=== PATIENT | female | born 1940 | race Caucasian/White ===

== ENCOUNTER 2017-06-25 04:51 | Inpatient (IN) | payer OTHER ==
[2017-06-25] VITALS (11 sets, daily range): BP systolic 127–192; BP diastolic 64–90; PULSE 67–81; RESP 12–18; TEMP 96.3–97.8; O2SAT 96–99
[~2017-06-25] VITALS: Ht 162.6 cm; Wt 77.8 kg
[~2017-06-25 04:51] MED LIST: ALEN35TA24 PO; COZA50TA PO; GLYB1TAB51 PO; LORTA5 PO; LOVA40TA PO; METF850T PO; OXYB5TAB PO
--- NOTE | 2017-06-25 05:28 | PD ---
HPI Chief Complaint: Abdominal Pain Time Seen by Provider: 05:22 Travel History International Travel<30 days: No Contact w/Intl Traveler<30days: No Traveled to known affect area: No History of Present Illness HPI 76-year-old female with 3 weeks of intermittent constipation. Patient with increasing pain this evening. No bowel movement over the past several days. Patient was seen by her primary care provider on Monday given direction to take laxative regimen help polyethylene glycol and Dulcolax without bowel movement. Patient has had previous hysterectomy but no other abdominal/pelvic surgeries. Patient has prescription for an x-ray of the abdomen and pelvis as well as an ultrasound of the gallbladder. Patient has had nausea without vomiting. No hematemesis no coffee-ground emesis no melena hematochezia. Patient has had poor oral intake. Patient's had no chest pain or shortness of breath. Patient does have history of hypertension and diabetes. Patient's current reported pain is 10 over 10 in intensity. Patient is unable to identify exacerbating or alleviating factors. PFSH Past Medical History Narrative Medical Hypertension dyslipidemia diabetes hysterectomy no tobacco use nursing notes reviewed Arthritis: Yes Cardiovascular Problems: Yes (HTN) High Cholesterol: Yes Diabetes: Yes Hypertension: Yes Immunizations Current: No Triglycerides - High: Yes Menopausal: No Past Surgical History Abdominal Surgery: Yes Hysterectomy: Yes Family History Family Hypercholesterolemia: Yes Social History Alcohol Use: No Tobacco Use: No Substance Use: No Allergies-Medications (Allergen,Severity, Reaction): Coded Allergies: No Known Allergies (Unverified Adverse Reaction, Unknown, 06/25/17) Reported Meds & Prescriptions Reported Meds & Active Scripts Active Reported Lantus Solostar Pen Inj (Insulin Glargine) 300 Unit/3 Ml Pen 1 Units SQ Lovastatin 40 Mg Tab 40 Mg PO DAILY Losartan-Hydrochlorothiazide 100-12.5 Mg Tab 1 Tab PO DAILY Metformin (Metformin HCl) 850 Mg Tab 850 Mg PO DAILY With a meal Review of Systems Except as stated in HPI: all other systems reviewed are Neg Physical Exam Narrative GENERAL: Well-developed elderly female in no acute distress no respiratory distress SKIN: Warm and dry. HEAD: Normocephalic. EYES: No scleral icterus. No injection or drainage. NECK: Supple, trachea midline. No JVD or lymphadenopathy. CARDIOVASCULAR: Regular rate and rhythm without murmurs, gallops, or rubs. RESPIRATORY: Breath sounds equal bilaterally. No accessory muscle use. GASTROINTESTINAL: Abdomen soft, diffusely tender without guarding or rebound, nondistended. Rectal exam: Normal sphincter tone no fissure noted no hemorrhoids no gross blood digital exam no stool in the rectal vault nontender exam glove with brown mucoid stool, heme-negative. MUSCULOSKELETAL: No cyanosis, or edema. BACK: Nontender without obvious deformity. No CVA tenderness. Data Data Last Documented VS Vital Signs Date Time Temp Pulse Resp B/P (MAP) Pulse Ox O2 Delivery O2 Flow Rate FiO2 06/25/17 07:15 16 06/25/17 07:10 72 127/71 (89) 98 Room Air 06/25/17 05:01 97.8 Orders Orders Complete Blood Count With Diff (06/25/17 05:22) Comprehensive Metabolic Panel (06/25/17 05:22) Lipase (06/25/17 05:22) Urinalysis - C+S If Indicated (06/25/17 05:22) Ct Abd/Pel W Iv Contrast(Rout) (06/25/17 05:22) Iv Access Insert/Monitor (06/25/17 05:22) Ecg Monitoring (06/25/17 05:22) Oximetry (06/25/17 05:22) Ondansetron Inj (Zofran Inj) (06/25/17 05:30) Sodium Chloride 0.9% Flush (Ns Flush) (06/25/17 05:30) Electrocardiogram (06/25/17 05:22) Chest, Single Ap (06/25/17 05:22) Troponin I (06/25/17 05:22) NPO (06/25/17 05:22) Hydromorphone Pf Inj (Dilaudid Pf Inj) (06/25/17 05:30) Sodium Chlor 0.9% 1000 Ml Inj (Ns 1000 M (06/25/17 05:30) Ckmb (Isoenzyme) Profile (06/25/17 05:45) CKMB (06/25/17 05:45) CKMB% (06/25/17 05:45) Iohexol 350 Inj (Omnipaque 350 Inj) (06/25/17 06:34) Labs Laboratory Tests Test 06/25/17 05:45 White Blood Count 9.3 TH/MM3 Red Blood Count 4.16 MIL/MM3 Hemoglobin 11.4 GM/DL Hematocrit 34.2 % Mean Corpuscular Volume 82.1 FL Mean Corpuscular Hemoglobin 27.4 PG Mean Corpuscular Hemoglobin Concent 33.3 % Red Cell Distribution Width 11.8 % Platelet Count 325 TH/MM3 Mean Platelet Volume 8.3 FL Neutrophils (%) (Auto) 62.4 % Lymphocytes (%) (Auto) 22.5 % Monocytes (%) (Auto) 11.2 % Eosinophils (%) (Auto) 2.9 % Basophils (%) (Auto) 1.0 % Neutrophils # (Auto) 5.8 TH/MM3 Lymphocytes # (Auto) 2.1 TH/MM3 Monocytes # (Auto) 1.0 TH/MM3 Eosinophils # (Auto) 0.3 TH/MM3 Basophils # (Auto) 0.1 TH/MM3 CBC Comment DIFF FINAL Differential Comment Blood Urea Nitrogen 12 MG/DL Creatinine 0.80 MG/DL Random Glucose 225 MG/DL Total Protein 7.7 GM/DL Albumin 3.2 GM/DL Calcium Level 8.7 MG/DL Alkaline Phosphatase 81 U/L Aspartate Amino Transf (AST/SGOT) 10 U/L Alanine Aminotransferase (ALT/SGPT) 22 U/L Total Bilirubin 0.3 MG/DL Sodium Level 126 MEQ/L Potassium Level 3.6 MEQ/L Chloride Level 88 MEQ/L Carbon Dioxide Level 30.8 MEQ/L Anion Gap 7 MEQ/L Estimat Glomerular Filtration Rate 70 ML/MIN Total Creatine Kinase 153 U/L Creatine Kinase MB 1.7 NG/ML Troponin I 0.06 NG/ML Lipase 234 U/L MDM Medical Decision Making Medical Screen Exam Complete: Yes Emergency Medical Condition: Yes Medical Record Reviewed: Yes Interpretation(s) EKG: normal sinus rhythm rate 80 QS septally age-indeterminate nonspecific T- wave inversion laterally; no acute ST elevation CBC & BMP Diagram 06/25/17 05:45 Total Protein 7.7, Albumin 3.2 L, Calcium Level 8.7, Alkaline Phosphatase 81, Aspartate Amino Transf (AST/SGOT) 10 L, Alanine Aminotransferase (ALT/SGPT) 22, Total Bilirubin 0.3 troponin I: 0.06, elevated Last Impressions Chest X-Ray 06/25/17 0522 Signed Impressions: Service Date/Time: Sunday, June 25, 2017 05:52 - CONCLUSION: 1. Cardiomegaly. Subsegmental atelectasis left base. Bernardo Frey MD Abdomen/Pelvis CT 06/25/17 0522 Signed Impressions: Service Date/Time: Sunday, June 25, 2017 06:31 - CONCLUSION: 1. No evidence of acute abdominal or pelvic process. No masses are identified. 2. Constipation as above 3. Left adrenal myelolipoma Bernardo Frey MD Differential Diagnosis Abdominal pain, gastritis, pancreatitis, peptic ulcer disease, choledocholithiasis, cholecystitis, colitis, mesenteric ischemia, bowel obstruction Narrative Course Patient kept nothing by mouth IV access obtained specimens collected and sent for resulting patient administered Zofran and Dilaudid along with maintenance IV fluids HemaPrompt Point of Care Internal Pos. & Neg. Controls: Passed Fecal Specimen Occult Blood: Negative Physician Communication Physician Communication all placed to [facility] service Diagnosis Primary Impression: Constipation Qualified Codes: K59.00 - Constipation, unspecified Additional Impressions: Elevated troponin I level Abdominal pain Qualified Codes: R10.84 - Generalized abdominal pain Admitting Information Admitting Physician Requests: Admit Michelle Leon MD Jun 25, 2017 05:28
[2017-06-25] MEDS ORDERED: ONDANSETRON HCL 4 MG/2 ML VIAL IVP ONE (05:30)
[2017-06-25] MEDS ORDERED: HYDROmorphone HCL PF 0.5 MG/0.5 ML SYRINGE IV PUSH ONE (05:30)
[2017-06-25] MEDS ORDERED: SODIUM CHLORIDE 0.9% FLUSH 10 ML FLUSH IV FLUSH PRN (05:30)
[2017-06-25] MEDS ORDERED: LANTINJ SQ (05:32)
[2017-06-25] MEDS ORDERED: LOSA100T3 PO (05:32)
[2017-06-25] MEDS ORDERED: METF850T PO (05:32)
[2017-06-25] MEDS ORDERED: LOVA40TA PO (05:32)
[2017-06-25] MEDS: SODIUM CHLOR 0.9% 1000 ML INJ 1,000 ML IV SCH ×2 (05:47→15:30)
[2017-06-25 05:54] LABS: AUTOMATED NEUTROPHIL # 5.8 TH/MM3 (1.8-7.7); BASOPHIL # 0.1 TH/MM3 (0-0.2); EOSINOPHIL # 0.3 TH/MM3 (0-0.4); EOSINOPHIL % 2.9 % (0.0-4.0); HEMATOCRIT 34.2 % (35.0-46.0); HEMO FLAGS DIFF FINAL; LYMPH % 22.5 % (9.0-44.0); LYMPHOCYTE # 2.1 TH/MM3 (1.0-4.8); MEAN CELL VOLUME 82.1 FL (80.0-100.0); MEAN CORPUSCULAR HEMOGLOBIN 27.4 PG (27.0-34.0); MEAN CORPUSCULAR HGB CONC 33.3 % (32.0-36.0); MONO % 11.2 % (0.0-8.0); NEUT % 62.4 % (16.0-70.0); PLATELET COUNT 325 TH/MM3 (150-450); RED BLOOD COUNT 4.16 MIL/MM3 (4.00-5.30); RED CELL DISTRIBUTION WIDTH 11.8 % (11.6-17.2); WHITE BLOOD COUNT 9.3 TH/MM3 (4.0-11.0)
[2017-06-25 06:01] LABS: CHLORIDE 88 MEQ/L (98-107); POTASSIUM 3.6 MEQ/L (3.5-5.1); SODIUM (NA) 126 MEQ/L (136-145)
[2017-06-25 06:05] LABS: ANION GAP 7 MEQ/L (5-15); BICARBONATE 30.8 MEQ/L (21.0-32.0); BLOOD UREA NITROGEN 12 MG/DL (7-18)
[2017-06-25 06:08] LABS: ALT (GPT) 22 U/L (10-53); AST (GOT) 10 U/L (15-37); GLOMERULAR FILTRATION RATE 70 ML/MIN (>89)
[2017-06-25 06:10] LABS: TOTAL BILIRUBIN ADULT 0.3 MG/DL (0.2-1.0)
[2017-06-25 06:11] LABS: ALKALINE PHOSPHATASE 81 U/L (45-117)
--- NOTE | 2017-06-25 06:27 | RADRPT ---
EXAM DATE/TIME: 06/25/2017 05:52 [facility] COMPARISON: No previous studies available for comparison. INDICATIONS : Shortness of breath. MEDICAL HISTORY : None. SURGICAL HISTORY : None. ENCOUNTER: Initial ACUITY: 1 day PAIN SCORE: 0/10 LOCATION: Bilateral chest FINDINGS: The cardiac silhouette is enlarged in transverse diameter. The lungs are hypoinflated. There is subse gmental atelectasis in the left base. No pleural effusions are identified. CONCLUSION: 1. Cardiomegaly. Subsegmental atelectasis left base. Bernardo Frey MD on June 25, 2017 at 6:25 Board Certified Radiologist. This report was verified electronically.
[2017-06-25] MEDS ORDERED: IOHEXOL 350 MG/ML 10 ML VIAL (for RAD DIAG) IVCONTRAST ONE (06:34)
[2017-06-25 06:40] LABS: CREATINE KINASE 153 U/L (26-192)
[2017-06-25 06:53] LABS: CKMB 1.7 NG/ML (0.5-3.6)
--- NOTE | 2017-06-25 06:54 | RADRPT ---
EXAM DATE/TIME: 06/25/2017 06:31 [facility] COMPARISON: No previous studies available for comparison. INDICATIONS : Right upper quadrant pain and constipation x 3 weeks. IV CONTRAST: 85 cc Omnipaque 350 (iohexol) IV ORAL CONTRAST: No oral contrast ingested. RADIATION DOSE: 14.53 CTDIvol (mGy) MEDICAL HISTORY : Hypertension. Diabetes mellitus type 2. SURGICAL HISTORY : Hysterectomy. ENCOUNTER: Initial ACUITY: 2 weeks PAIN SCALE: 9/10 LOCATION: Right upper quadrant TECHNIQUE: Volumetric scanning of the abdomen and pelvis was performed. Using automated exposure control and ad justment of the mA and/or kV according to patient size, radiation dose was kept as low as reasonably achievable to obtain optimal diagnostic quality images. DICOM format image data is available electro nically for review and comparison. FINDINGS: Examination of the lung bases demonstrates no abnormality. No pleural fluid is identified. No pulmona ry nodules are present. The liver and spleen are normal in size and no focal defects are identified. The gallbladder and pancreas are unremarkable. No intrahepatic or extrahepatic ductal dilatation is s een. The right adrenal gland is unremarkable. There is a 3.6 cm mass in the left adrenal gland contai neelam fat characteristic of myelolipomaThe kidneys are normal bilaterally without evidence of mass or hydronephrosis. There is distention of the cecum measuring 7 cm with a large amount of stool within it as well as the entire colon. The bladder appears normal. No wall thickening or intraluminal masses are identified. No free fluid is identified. CONCLUSION: 1. No evidence of acute abdominal or pelvic process. No masses are identified. 2. Constipation as above 3. Left adrenal myelolipoma Bernardo Frey MD on June 25, 2017 at 6:49 Board Certified Radiologist. This report was verified electronically.
[2017-06-25 08:14] LABS: BLOOD, URINE NEG (NEG); GLUCOSE,URINE NEG (NEG); KETONE, URINE NEG (NEG); NITRITE,URINE NEG (NEG); PH, URINE 7.5 (5.0-8.5)
[2017-06-25 08:26] LABS: METHOD OF COLLECTION CLEAN CATCH; URINE COLOR YELLOW (YELLW/STRAW)
[2017-06-25 08:27] LABS: BACTERIA, URINE MANY /hpf; COMMENT (UR) CULTURE INDICATED; CULTURE IF INDICATED CULTURE INDICATED; SQUAMOUS EPITHELIAL CELL URINE 0-5 /hpf (0-5)
[2017-06-25] MEDS ORDERED: KETOROLAC TROMETHAMINE 30 MG/ML (IVP) VIAL IV PUSH ONE (10:30)
[2017-06-25] MEDS ORDERED: PROMETHAZINE INJ 25 MG/ML VIAL IM PRN (10:30)
[2017-06-25] MEDS ORDERED: HYDROmorphone HCL PF 2 MG/ML VIAL IV PUSH PRN (10:45)
--- NOTE | 2017-06-25 10:57 | HHI.HP ---
[facility] Diogenes Hooks MD Admission Diagnosis abdominaL pain; constipation; elevated troponin I Diagnoses: Chief Complaint: Abdominal pain Travel History International Travel<30 Days: No Contact w/Intl Traveler <30 Da: No Traveled to Known Affected Are: No History of Present Illness 76-year-old female being admitted for intractable abdominal pain. Patient was in her usual state of health until a few weeks ago when she began developing worsening constipation. She has had increased pain and slowed bowel movements over the last 3 weeks but in the last few days her pain became substantially worse fluctuating up to a 10 out of 10. Daughter says that she has tried taking some [id number] pain relievers to no avail. Pain is worse with sitting, slightly eased with standing up and moving around. Denies any bloody stools or hematemesis, patient does admit to nausea but no jesu vomiting. Daughter reports that she has had decreased by mouth intake. Daughter reports that she has tried enemas at home with minimal results. At best the patient has about one bowel movement per week which is now even worse per the daughter. Patient does report having some intermittent chest pains that are chronic but not currently present on this ER visit. Denies ever having a heart history involving cardiac catheterizations stress test. Review of Systems Except as stated in HPI: all other systems reviewed are Neg Past Family Social History Past Medical History Hypertension, dyslipidemia, diabetes, Past Surgical History Hysterectomy Allergies: Coded Allergies: No Known Allergies (Unverified Allergy, Unknown, 06/25/17) Family History Family history of heart disease and constipation Social History Denies any alcohol tobacco or illicit drug use Physical Exam Vital Signs Vital Signs Date Time Temp Pulse Resp B/P (MAP) Pulse Ox O2 Delivery O2 Flow Rate FiO2 06/25/17 10:00 67 16 143/74 (97) 97 Room Air 06/25/17 09:32 16 06/25/17 09:00 69 16 145/79 (101) 06/25/17 08:22 81 16 133/79 (97) 99 Room Air 06/25/17 07:15 16 06/25/17 07:10 72 16 127/71 (89) 98 Room Air 06/25/17 05:35 18 97 Room Air 06/25/17 05:35 18 06/25/17 05:01 97.8 78 12 148/70 (96) 97 Physical Exam VS: Afebrile GENERAL: Patient is restless, can't stay in one position, standing upon my entrance into the room, mild acute distress secondary to pain SKIN: Warm and dry. EYES: No scleral icterus. No injection or drainage. ENT: No nasal bleeding or discharge. Mucous membranes pink and moist. CARDIOVASCULAR: Regular rate and rhythm. no murmurs RESPIRATORY: No accessory muscle use. Clear to auscultation. Breath sounds equal bilaterally. GASTROINTESTINAL: Abdomen soft, slightly distended, has diffuse abdominal tenderness palpation which is much more prominent on the right, no rebound Extremities: No clubbing, cyanosis, or edema. No obvious deformities. MUSCULOSKELETAL: Extremities without clubbing, cyanosis, or edema. No obvious deformities. grossly intact ROM with 5/5 strength in upper and lower extremities proximally NEUROLOGICAL: Awake and alert. No obvious cranial nerve deficits. No facial droop nor slurred speech noted. PSYCHIATRIC: Appropriate mood and affect; insight and judgment normal. Laboratory Laboratory Tests Test 06/25/17 05:45 06/25/17 08:05 White Blood Count 9.3 Red Blood Count 4.16 Hemoglobin 11.4 Hematocrit 34.2 Mean Corpuscular Volume 82.1 Mean Corpuscular Hemoglobin 27.4 Mean Corpuscular Hemoglobin Concent 33.3 Red Cell Distribution Width 11.8 Platelet Count 325 Mean Platelet Volume 8.3 Neutrophils (%) (Auto) 62.4 Lymphocytes (%) (Auto) 22.5 Monocytes (%) (Auto) 11.2 Eosinophils (%) (Auto) 2.9 Basophils (%) (Auto) 1.0 Neutrophils # (Auto) 5.8 Lymphocytes # (Auto) 2.1 Monocytes # (Auto) 1.0 Eosinophils # (Auto) 0.3 Basophils # (Auto) 0.1 CBC Comment DIFF FINAL Differential Comment Blood Urea Nitrogen 12 Creatinine 0.80 Random Glucose 225 Total Protein 7.7 Albumin 3.2 Calcium Level 8.7 Alkaline Phosphatase 81 Aspartate Amino Transf (AST/SGOT) 10 Alanine Aminotransferase (ALT/SGPT) 22 Total Bilirubin 0.3 Sodium Level 126 Potassium Level 3.6 Chloride Level 88 Carbon Dioxide Level 30.8 Anion Gap 7 Estimat Glomerular Filtration Rate 70 Total Creatine Kinase 153 Creatine Kinase MB 1.7 Troponin I 0.06 Lipase 234 Urine Collection Type CLEAN CATCH Urine Color YELLOW Urine Turbidity SLIGHT Urine pH 7.5 Urine Specific [place] 1.030 Urine Protein NEG Urine Glucose (UA) NEG Urine Ketones NEG Urine Occult Blood NEG Urine Nitrite NEG Urine Bilirubin NEG Urine Leukocyte Esterase LARGE Urine WBC 20-24 Urine WBC Clumps OCC Urine Squamous Epithelial Cells 0-5 Urine Bacteria MANY Microscopic Urinalysis Comment CULTURE INDICATED Urine Collection Time 08:05 Date/Time Source Procedure Growth Status 06/25/17 08:05 Urine Clean Catch Urine Culture Pending Received Result Diagram: 06/25/1745 06/25/17544 Caprini VTE Risk Assessment Caprini VTE Risk Assessment: Mod/High Risk (score >= 2) Caprini Risk Assessment Model Point Value = 1 Point Value = 2 Point Value = 3 Point Value = 5 Age 41-60 Minor surgery BMI > 25 kg/m2 Swollen legs Varicose veins or History of unexplained or recurrent spontaneous Oral contraceptives or hormone replacement Sepsis (< 1 month) Serious lung disease, including pneumonia (< 1 month) Abnormal pulmonary function Acute myocardial infarction Congestive heart failure (< 1 month) History of inflammatory bowel disease Medical patient at bed rest Age 61-74 Arthroscopic surgery Major open surgery (> 45 min) Laparoscopic surgery (> 45 min) Malignancy Confined to bed (> 72 hours) Immobilizing plaster cast Central venous access Age >= 75 History of VTE Family history of VTE Factor V Leiden Prothrombin [id number] Lupus anticoagulant Anticardiolipin antibodies Elevated serum homocysteine Heparin-induced thrombocytopenia Other congenital or acquired thrombophilia Stroke (< 1 month) Elective arthroplasty Hip, pelvis, or leg fracture Acute spinal cord injury (< 1 month) Prophylaxis Regimen Total Risk Factor Score Risk Level Prophylaxis Regimen 0-1 Low Early ambulation 2 Moderate Order ONE of the following: *Sequential Compression Device (SCD) *Heparin 5000 units SQ BID 3-4 Higher Order ONE of the following medications: *Heparin 5000 units SQ TID *Enoxaparin/Lovenox 40 mg SQ daily (WT < 150 kg, CrCl > 30 mL/min) *Enoxaparin/Lovenox 30 mg SQ daily (WT < 150 kg, CrCl > 10-29 mL/min) *Enoxaparin/Lovenox 30 mg SQ BID (WT < 150 kg, CrCl > 30 mL/min) AND/OR *Sequential Compression Device (SCD) 5 or more Highest Order ONE of the following medications: *Heparin 5000 units SQ TID (Preferred with Epidurals) *Enoxaparin/Lovenox 40 mg SQ daily (WT < 150 kg, CrCl > 30 mL/min) *Enoxaparin/Lovenox 30 mg SQ daily (WT < 150 kg, CrCl > 10-29 mL/min) *Enoxaparin/Lovenox 30 mg SQ BID (WT < 150 kg, CrCl > 30 mL/min) AND *Sequential Compression Device (SCD) Assessment and Plan Assessment and Plan Abdominal pain - Independent review of the CT scan shows substantial constipation - We will proceed with Fleet enema as and glycerin suppositories today as radiology is unable to come in today to perform ultimately desired Gastrografin enema until tomorrow - Relistor daily - Dilaudid prn pain sparingly given narcotic constipation Hyponatremia - Could be chronic or acute, repeat BMP in a.m. - We'll check urine sodium and osmolality - We will traditionally fluid restrict but given that the patient is significant constipated, we will administer normal saline and see how that improves Minimally Elevated troponin - Independently reviewed EKG which is though one and only in the entire record shows very subtle T-wave inversions in V4 to V6 - Case related to cardiology, recommends GI workup first. Clinically to me the patient does not appear to have stable or unstable angina based upon her history. - We'll trend troponins and give daily aspirin and check LDL - Keep on telemetry Hypertension - Continue home below losartan-hctz Diabetes - We'll hold home metformin and give sliding scale with Accu-Cheks VTE prevention - Lovenox Physician Certification 2 Midnight Certification Type: Admission for Inpatient Services Order for Inpatient Services The services are ordered in accordance with Medicare regulations or non- Medicare payer requirements, as applicable. In the case of services not specified as inpatient-only, they are appropriately provided as inpatient services in accordance with the 2-midnight benchmark. Estimated LOS (days): 2 2 days is the estimated time the patient will need to remain in the hospital, assuming treatment plan goals are met and no additional complications. Post-Hospital Plan: Home Nahid Cota MD Jun 25, 2017 10:57
[2017-06-25] MEDS ORDERED: METFORMIN HOLD POST IV CONTRAST SCH (11:15)
[2017-06-25] MEDS ORDERED: ASPIRIN 81 MG CHEW TAB CHEW ONE (12:00)
[2017-06-25] MEDS: METHYLNALTREXONE BROMIDE 12 MG/0.6 ML VIAL SQ SCH (12:35)
--- NOTE | 2017-06-25 13:01 | EKG ---
Date Performed: 06/25/2017 Time Performed: 05:33:21 PTAGE: 76 years EKG: Poor initial anterior forces Nonspecific T-wave change ABNORMAL ECG NO PREVIOUS TRACING DOCTOR: Yash Ramachandran Interpretating Date/Time 06/25/2017 12:59:01
[2017-06-25 16:13] LABS: HDL CHOLESTEROL 45.6 MG/DL (40.0-60.0)
[2017-06-25] MEDS ORDERED: GLYCERIN ADULT 2 GM SUPP RECTAL ONE (20:00)
[2017-06-26] VITALS: BP 139/67; PULSE 67; RESP 16; TEMP 97.4; O2SAT 97
[2017-06-26] MEDS: SODIUM CHLOR 0.9% 1000 ML INJ 1,000 ML IV SCH (01:48)
[2017-06-26 04:00] VITALS: BP 152/67; PULSE 66; RESP 16; TEMP 97.1; O2SAT 97
[2017-06-26 08:00] VITALS: BP 153/66; PULSE 66; RESP 20; TEMP 97.5; O2SAT 95
[2017-06-26] MEDS: METHYLNALTREXONE BROMIDE 12 MG/0.6 ML VIAL SQ SCH (09:00)
[2017-06-26] MEDS ORDERED: DIATRIZOATE MEGLUM/DIATRIZOATE SOD 120 ML BTL (for RAD DIAG) RECTAL ONE (10:00)
--- NOTE | 2017-06-26 11:46 | RADRPT ---
EXAM DATE/TIME: 06/26/2017 08:57 [facility] COMPARISON: CHEST SINGLE AP, June 25, 2017, 5:52. INDICATIONS : Constipation. FLUORO TIME: 1.9 minutes IMAGE COUNT: 4 CONTRAST: 1. Gastroview MEDICAL HISTORY : Hypertension. Diabetes mellitus type II. SURGICAL HISTORY : Hysterectomy. ENCOUNTER: Subsequent ACUITY: 2 weeks PAIN SCORE: 6/10 LOCATION: Right upper quadrant abdomen FINDINGS: Preliminary film is unremarkable. Limited Gastrografin evaluation was performed. Study was not tailored to assess the colonic mucosa. Under fluoroscopic guidance a Gastrografin enema was performed with free flow of contrast to the ceca l tip. Gastrografin was instilled retrograde throughout the colon all the way to the cecum. No obstructing l esion was identified. There is only a moderate amount of stool seen in the cecum, descending colon an d proximal sigmoid. Post evacuation radiographs are unremarkable. CONCLUSION: Moderate amount of stool within the cecum ascending and transverse colon. No obstruct ing lesion identified. Maik Ramirez MD on June 26, 2017 at 11:42 Board Certified Radiologist. This report was verified electronically.
[2017-06-26 12:00] VITALS: BP 146/66; PULSE 66; RESP 20; TEMP 96.6; O2SAT 95
[2017-06-26] MEDS ORDERED: POLYETHYLENE GLYCOL 17 GM PKG PO SCH (14:15)
[2017-06-26 14:38] LABS: POTASSIUM 3.9 MEQ/L (3.5-5.1)
[2017-06-26] MEDS ORDERED: cefTRIAXone INJ 1,000 MG in SODIUM CHLORIDE 0.9% INJ 100 ML IV SCH (15:00)
--- NOTE | 2017-06-26 15:11 | HHI.PR ---
Subjective Remarks Nursing denies any acute deterioration since last night. nursing reports the patient had a good bowel evacuation after Gastrografin enema. Patient herself via her daughters translation states that her pain is still there but is much improved since the enema. Patient has not reported any chest pain today nor any nausea or vomiting. Objective Vital Signs Date Time Temp Pulse Resp B/P (MAP) Pulse Ox O2 Delivery O2 Flow Rate FiO2 06/26/17 12:00 96.6 66 20 146/66 (92) 95 06/26/17 08:00 97.5 66 20 153/66 (95) 95 06/26/17 04:00 97.1 66 16 152/67 (95) 97 06/26/17 00:00 97.4 67 16 139/67 (91) 97 06/25/17 20:00 96.8 67 16 160/64 (96) 99 06/25/17 18:49 68 152/90 (110) 06/25/17 16:00 96.4 67 14 192/81 (118) 97 I/O 06/25/17 06/25/17 06/25/17 06/26/17 06/26/17 06/26/17 07:00 15:00 23:00 07:00 15:00 23:00 Intake Total 1827 ml 1010 ml 600 ml Balance 1827 ml 1010 ml 600 ml Intake Oral 1080 ml 480 ml 600 ml IV Total 747 ml 530 ml # Voids 4 1 2 # Bowel Movements 0 0 2 Result Diagram: 06/25/17 0545 06/26/17 1345 Objective Remarks Sitting in bed, eating lunch, no acute distress Abdomen is soft, nondistended, minimal tenderness to palpation diffusely Patient is able to get up on her own, has 5 out of 5 strength in proximal upper and lower studies bilaterally with no gait instability noted. A/P Assessment and Plan Abdominal pain - Patient originally denied a good results with soapsuds enema but Significantly improved post Gastrografin enema earlier this morning. - Pain is nearly resolved Patient is tolerating by mouth much take much better this morning. Her hyponatremia is nearly resolved. Troponins were very minimal and her clinical picture was not suggestive of any concerning angina. Urine culture is growing gram-negative serena, will give a one-time dose of Rocephin IV and discharge patient on cefdinir with urine cultures to f/u after discharge. No need for any rehabilitation as the patient is adequate strength. Daughters and patient were counseled extensively on a high fiber diet along with taking prescribed stool softeners to minimize her constipation. Patient daughter also counseled to follow-up with urology or general surgery as an outpatient guarding the patient's left sided 3.6 cm incidental adrenal mass. Nahid Cota MD Jun 26, 2017 15:11
[2017-06-26] MEDS ORDERED: CEFD300C PO (15:12)
[2017-06-26] MEDS ORDERED: MIRA3350 PO (15:13)
--- NOTE | 2017-06-26 15:16 | HHI.DCPOC ---
Discharge Care Plan Diagnosis: (1) Myelolipoma of left adrenal gland (2) Constipation Goals to Promote Your Health * To prevent worsening of your condition and complications * To maintain your health at the optimal level Directions to Meet Your Goals Take your medications as prescribed Follow your dietary instruction Follow activity as directed Keep your appointments as scheduled Take your immunizations and boosters as scheduled If your symptoms worsen call your PCP, if no PCP go to Urgent Care Center or Emergency Room Smoking is Dangerous to Your Health. Avoid second hand smoke Call the 24-hour hour crisis hotline for domestic abuse at Nahid Cota MD Jun 26, 2017 15:16
[2017-06-26 16:00] VITALS: BP 145/70; PULSE 89; RESP 20; TEMP 99.2; O2SAT 98
== END 2017-06-26 18:40 | disposition home or self-care (01) | DRG 392 ==
LOC: PHED 04:51 → INTOOBSV 07:34 → PHEDA 07:34 → PH3A 10:39 → OBSVTOIN 10:43
PROVIDERS: ADMIT Family Medicine; ATTEND Family Medicine
DX: K59.03 Drug induced constipation (principal); E87.1 Hypo-osmolality and hyponatremia; N39.0 Urinary tract infection, site not specified; E11.9 Type 2 diabetes mellitus without complications; I10 Essential (primary) hypertension; M19.90 Unspecified osteoarthritis, unspecified site; E78.5 Hyperlipidemia, unspecified; T40.605A Adverse effect of unspecified narcotics, initial encounter; E27.9 Disorder of adrenal gland, unspecified
CPT/HCPCS: 71010; 74177; 74270; 80048; 80053; 80061; 81001; 82550; 82552; 82948; 83690; 84443; 84484; 85025; 87077; 87086; 87186; 93005; 96361; 96374; 96375; J1170; J0696; J1885; J2212; J2405; J7030; Q9963; Q9967